=== PATIENT | female | born 1950 | race Caucasian/White ===

== ENCOUNTER 2020-10-17 14:17 | Inpatient (IN) | payer MEDICARE ==
[~2020-10-17] VITALS: Ht 157.5 cm; Wt 50.6 kg
[2020-10-17] MEDS ORDERED: ONDANSETRON HCL INJ 2MG/ML 2ML 2 MG/ML VIAL IV STA (15:08)
[2020-10-17] MEDS ORDERED: SODIUM CHLORIDE 0.9% 1000ML 1,000 ML IV STA (15:08)
[2020-10-17 15:19] LABS: BASOPHILS % 0.7 % (0.0-1.0); EOSINOPHILS # (AUTO) 0.2 (0.0-0.4); EOSINOPHILS % 3.5 % (0.0-6.0); HEMATOCRIT 40.6 % (34.2-44.1); HEMOGLOBIN 13.9 g/dL (12.0-16.0); LYMPHOCYTES # (AUTO) 0.8 (1.0-3.2); LYMPHOCYTES % 14.6 % (18.0-39.1); MEAN CORPUSCULAR HEMOGLOBIN 34.3 pg (28-32); MEAN CORPUSCULAR HGB CONC 34.2 g/dL (31-35); MEAN CORPUSCULAR VOLUME 100.2 fL (81-99); MONOCYTES # (AUTO) 0.9 (0.2-0.8); MONOCYTES % 16.5 % (4.4-11.3); NEUTROPHILS # (AUTO) 3.5 (2.1-6.9); NEUTROPHILS % 64.3 % (38.7-80.0); PLATELET COUNT 237 x10e3/uL (140-360); RED BLOOD COUNT 4.05 x10e6/uL (3.6-5.1); RED CELL DISTRIBUTION WIDTH 14.3 % (11.7-14.4)
[2020-10-17 16:11] LABS: ALBUMIN 3.7 g/dL (3.5-5.0); ALBUMIN/GLOBULIN RATIO 1.2 (0.8-2.0); CALCIUM 9.2 mg/dL (8.4-10.2); CREATININE, SERUM 2.29 mg/dL (0.57-1.11)
[2020-10-17 16:17] LABS: CREATINE KINASE MB 3.8 ng/mL (0-5.0)
[2020-10-17] MEDS ORDERED: PIPER-TAZ 3.375 GM 50 ML IV STA (17:23)
[2020-10-17] MEDS ORDERED: POTASSIUM CHLORIDE 20 MEQ TAB CR PO STA (17:27)
[2020-10-17] MEDS ORDERED: POTASSIUM CHLORIDE 10MEQ/100ML 100 ML IV ONE (17:30)
[2020-10-17] MEDS: PIPERACILLIN IV SCH ×2 (18:12→21:57)
[2020-10-17] MEDS: SODIUM CHLORIDE 0.9% IV SCH ×2 (18:12→21:57)
[2020-10-17] MEDS: TAZO IV SCH ×2 (18:12→21:57)
[2020-10-17] MEDS: D5.45%NS/KCL 20MEQ 1,000 ML IV SCH (18:55)
[2020-10-17 20:38] VITALS: BP 191/82
[2020-10-17 21:00] VITALS: BP 191/82
[2020-10-17] MEDS ORDERED: DICYCLOMINE HCL10 MG PO (21:22)
[2020-10-17] MEDS ORDERED: TOPIRAMATE25 MG PO (21:22)
[2020-10-17] MEDS ORDERED: SERTRALINE HCL50 MG PO (21:22)
[2020-10-17] MEDS ORDERED: TRIAMTERENE-HCTZ1 EA PO (21:22)
[2020-10-17] MEDS ORDERED: PIPERACILLIN/TAZO 2.25 GM 50 ML IV ONE (21:41)
[2020-10-17] MEDS: TOPIRAMATE 25 MG TAB PO SCH (21:57)
[2020-10-17] MEDS: DICYCLOMINE HCL 10 MG CAP PO PRN (21:57)
[2020-10-17] MEDS: CLONIDINE HCL 0.1 MG TAB PO PRN (21:57)
[2020-10-17] MEDS: SERTRALINE HCL 50 MG TAB PO SCH (21:57)
[2020-10-18] VITALS (8 sets, daily range): BP systolic 115–189; BP diastolic 60–81
[2020-10-18] MEDS: LOPERAMIDE HCL 2 MG CAP PO PRN ×2 (01:15→17:07)
[2020-10-18] MEDS: D5.45%NS/KCL 20MEQ 1,000 ML IV SCH ×3 (04:22→17:07)
[2020-10-18] MEDS ORDERED: PIPERACILLIN/TAZO 2.25 GM 50 ML IV ONE (05:10)
[2020-10-18] MEDS: TAZO IV SCH ×3 (05:20→22:54)
[2020-10-18] MEDS: SODIUM CHLORIDE 0.9% IV SCH ×3 (05:20→22:54)
[2020-10-18] MEDS: PIPERACILLIN IV SCH ×3 (05:20→22:54)
[2020-10-18 05:59] LABS: BASOPHILS % 0.8 % (0.0-1.0); EOSINOPHILS # (AUTO) 0.3 (0.0-0.4); EOSINOPHILS % 4.9 % (0.0-6.0); HEMOGLOBIN 11.4 g/dL (12.0-16.0); LYMPHOCYTES # (AUTO) 0.8 (1.0-3.2); LYMPHOCYTES % 15.7 % (18.0-39.1); MEAN CORPUSCULAR HEMOGLOBIN 33.7 pg (28-32); MEAN CORPUSCULAR HGB CONC 32.6 g/dL (31-35); MEAN CORPUSCULAR VOLUME 103.6 fL (81-99); NEUTROPHILS # (AUTO) 3.2 (2.1-6.9); PLATELET COUNT 202 x10e3/uL (140-360); RED BLOOD COUNT 3.38 x10e6/uL (3.6-5.1); RED CELL DISTRIBUTION WIDTH 14.2 % (11.7-14.4)
[2020-10-18] MEDS: DICYCLOMINE HCL 10 MG CAP PO PRN ×2 (06:08→14:46)
[2020-10-18] MEDS: METRONIDAZOLE 500 MG TAB PO SCH ×3 (06:08→22:26)
[2020-10-18 06:21] LABS: ALBUMIN 2.7 g/dL (3.5-5.0); ALBUMIN/GLOBULIN RATIO 1.2 (0.8-2.0); ANION GAP 15.1 mmol/L (8-16); CALCIUM 7.9 mg/dL (8.4-10.2); CREATININE, SERUM 1.9 mg/dL (0.57-1.11); POTASSIUM 3.1 mmol/L (3.5-5.1)
[2020-10-18 06:24] LABS: MAGNESIUM 1.1 MG/DL (1.3-2.1)
[2020-10-18] MEDS ORDERED: MAGNESIUM SULFATE 2GM/50ML 50 ML IV ONE ×2 (07:00→09:00)
[2020-10-18] MEDS ORDERED: POTASSIUM CHLORIDE 20 MEQ TAB CR PO ONE (07:15)
[2020-10-18] MEDS: SERTRALINE HCL 50 MG TAB PO SCH ×2 (07:57→21:45)
[2020-10-18] MEDS: AMLODIPINE BESYLATE 5 MG TAB PO SCH (07:57)
[2020-10-18] MEDS: TOPIRAMATE 25 MG TAB PO SCH ×2 (07:57→21:45)
[2020-10-18] MEDS ORDERED: PIPERACILLIN IV ONE ×2 (14:44→22:10)
[2020-10-18] MEDS ORDERED: TAZO IV ONE ×2 (14:44→22:10)
[2020-10-18] MEDS ORDERED: PEG (High)/E-LYTE SOLN 4,000 ML BTL PO ONE (20:00)
[2020-10-18] MEDS ORDERED: BISACODYL 5 MG TAB EC PO ONE (20:00)
[2020-10-19] VITALS (8 sets, daily range): BP systolic 125–173; BP diastolic 67–81
[2020-10-19] MEDS: D5.45%NS/KCL 20MEQ 1,000 ML IV SCH ×3 (03:49→17:11)
[2020-10-19] MEDS: METRONIDAZOLE 500 MG TAB PO SCH ×3 (06:00→21:03)
[2020-10-19] MEDS: TAZO IV SCH ×3 (06:13→21:03)
[2020-10-19] MEDS: PIPERACILLIN IV SCH ×3 (06:13→21:03)
[2020-10-19] MEDS: SODIUM CHLORIDE 0.9% IV SCH ×3 (06:13→21:03)
[2020-10-19] MEDS ORDERED: PIPERACILLIN IV ONE ×2 (06:18→20:29)
[2020-10-19] MEDS ORDERED: TAZO IV ONE ×2 (06:18→20:29)
[2020-10-19 06:54] LABS: BASOPHILS # (AUTO) 0.1 (0.0-0.1); EOSINOPHILS # (AUTO) 0.3 (0.0-0.4); EOSINOPHILS % 5.4 % (0.0-6.0); HEMATOCRIT 33.3 % (34.2-44.1); HEMOGLOBIN 11.2 g/dL (12.0-16.0); LYMPHOCYTES # (AUTO) 0.6 (1.0-3.2); LYMPHOCYTES % 12.7 % (18.0-39.1); MEAN CORPUSCULAR HEMOGLOBIN 33.8 pg (28-32); MEAN CORPUSCULAR HGB CONC 33.6 g/dL (31-35); MEAN CORPUSCULAR VOLUME 100.6 fL (81-99); MONOCYTES # (AUTO) 0.9 (0.2-0.8); MONOCYTES % 18.3 % (4.4-11.3); NEUTROPHILS # (AUTO) 3.1 (2.1-6.9); NEUTROPHILS % 62.2 % (38.7-80.0); PLATELET COUNT 219 x10e3/uL (140-360); RED BLOOD COUNT 3.31 x10e6/uL (3.6-5.1); RED CELL DISTRIBUTION WIDTH 14.1 % (11.7-14.4)
[2020-10-19 07:13] LABS: ALBUMIN 2.5 g/dL (3.5-5.0); ANION GAP 10.8 mmol/L (8-16); CREATININE, SERUM 1.86 mg/dL (0.57-1.11); POTASSIUM 3.8 mmol/L (3.5-5.1)
[2020-10-19] MEDS: AMLODIPINE BESYLATE 5 MG TAB PO SCH (09:00)
[2020-10-19] MEDS: TOPIRAMATE 25 MG TAB PO SCH ×2 (09:12→20:58)
[2020-10-19] MEDS: SERTRALINE HCL 50 MG TAB PO SCH ×2 (09:12→21:03)
[2020-10-19] MEDS ORDERED: MIDAZOLAM HCL 2 MG/2 ML VIAL ONE (11:58)
[2020-10-19] MEDS ORDERED: FENTANYL CITRATE/PF 100MCG/2 ML INJ ONE (11:58)
[2020-10-19] MEDS ORDERED: PIPERACILLIN/TAZO 2.25 GM 50 ML IV ONE (13:51)
[2020-10-19] MEDS ORDERED: PROPOFOL IV EMULSION 10 MG/ML 20 ML VIAL ONE (17:45)
[2020-10-19] MEDS: LOPERAMIDE HCL 2 MG CAP PO PRN (17:49)
[2020-10-20] VITALS (7 sets, daily range): BP systolic 114–161; BP diastolic 67–80
[2020-10-20] MEDS ORDERED: TAZO IV ONE (04:55)
[2020-10-20] MEDS ORDERED: PIPERACILLIN IV ONE (04:55)
[2020-10-20] MEDS: TAZO IV SCH (05:47)
[2020-10-20] MEDS: SODIUM CHLORIDE 0.9% IV SCH (05:47)
[2020-10-20] MEDS: PIPERACILLIN IV SCH (05:47)
[2020-10-20] MEDS: METRONIDAZOLE 500 MG TAB PO SCH ×3 (05:47→21:36)
[2020-10-20] MEDS: D5.45%NS/KCL 20MEQ 1,000 ML IV SCH ×4 (05:52→22:10)
[2020-10-20 08:24] LABS: BASOPHILS % 0.8 % (0.0-1.0); EOSINOPHILS # (AUTO) 0.4 (0.0-0.4); EOSINOPHILS % 7.8 % (0.0-6.0); HEMATOCRIT 33.9 % (34.2-44.1); HEMOGLOBIN 11.3 g/dL (12.0-16.0); LYMPHOCYTES % 18.1 % (18.0-39.1); MEAN CORPUSCULAR HGB CONC 33.3 g/dL (31-35); MEAN CORPUSCULAR VOLUME 102.1 fL (81-99); MONOCYTES # (AUTO) 1.2 (0.2-0.8); MONOCYTES % 22.5 % (4.4-11.3); NEUTROPHILS # (AUTO) 2.7 (2.1-6.9); NEUTROPHILS % 50.4 % (38.7-80.0); PLATELET COUNT 191 x10e3/uL (140-360); RED BLOOD COUNT 3.32 x10e6/uL (3.6-5.1); RED CELL DISTRIBUTION WIDTH 14.3 % (11.7-14.4)
[2020-10-20 08:53] LABS: ALBUMIN 2.3 g/dL (3.5-5.0); ANION GAP 10.8 mmol/L (8-16); CALCIUM 7.8 mg/dL (8.4-10.2); CREATININE, SERUM 1.75 mg/dL (0.57-1.11); MAGNESIUM 1.4 MG/DL (1.3-2.1); POTASSIUM 3.8 mmol/L (3.5-5.1)
[2020-10-20] MEDS: AMLODIPINE BESYLATE 5 MG TAB PO SCH (09:22)
[2020-10-20] MEDS: SERTRALINE HCL 50 MG TAB PO SCH ×2 (09:23→21:39)
[2020-10-20] MEDS: TOPIRAMATE 25 MG TAB PO SCH ×2 (09:23→21:37)
[2020-10-20] MEDS: LOPERAMIDE HCL 2 MG CAP PO PRN (09:23)
[2020-10-20] MEDS: PIPERACILLIN/TAZO 2.25 GM 50 ML IV SCH ×2 (14:16→22:07)
[2020-10-21] VITALS (8 sets, daily range): BP systolic 160–174; BP diastolic 76–90
[2020-10-21] MEDS: LOPERAMIDE HCL 2 MG CAP PO PRN ×3 (00:53→14:22)
[2020-10-21] MEDS: PIPERACILLIN/TAZO 2.25 GM 50 ML IV SCH ×3 (06:09→21:20)
[2020-10-21] MEDS: METRONIDAZOLE 500 MG TAB PO SCH ×3 (06:11→21:21)
[2020-10-21] MEDS: AMLODIPINE BESYLATE 5 MG TAB PO SCH (09:17)
[2020-10-21] MEDS: TOPIRAMATE 25 MG TAB PO SCH ×2 (09:18→21:20)
[2020-10-21] MEDS: D5.45%NS/KCL 20MEQ 1,000 ML IV SCH ×3 (09:18→23:13)
[2020-10-21] MEDS: SERTRALINE HCL 50 MG TAB PO SCH ×2 (09:19→21:20)
[2020-10-21] MEDS: CLONIDINE HCL 0.1 MG TAB PO PRN (21:20)
[2020-10-22] VITALS (7 sets, daily range): BP systolic 141–165; BP diastolic 73–83
[2020-10-22 04:56] LABS: BASOPHILS % 0.9 % (0.0-1.0); EOSINOPHILS # (AUTO) 0.3 (0.0-0.4); HEMATOCRIT 35.8 % (34.2-44.1); HEMOGLOBIN 11.8 g/dL (12.0-16.0); LYMPHOCYTES % 24.1 % (18.0-39.1); MEAN CORPUSCULAR HEMOGLOBIN 33.6 pg (28-32); MONOCYTES # (AUTO) 0.7 (0.2-0.8); MONOCYTES % 17.3 % (4.4-11.3); NEUTROPHILS # (AUTO) 2.1 (2.1-6.9); NEUTROPHILS % 49.5 % (38.7-80.0); PLATELET COUNT 209 x10e3/uL (140-360); RED BLOOD COUNT 3.51 x10e6/uL (3.6-5.1); RED CELL DISTRIBUTION WIDTH 14.4 % (11.7-14.4)
[2020-10-22 05:22] LABS: ANION GAP 9.3 mmol/L (8-16); CREATININE, SERUM 1.59 mg/dL (0.57-1.11); POTASSIUM 4.3 mmol/L (3.5-5.1)
[2020-10-22] MEDS: PIPERACILLIN/TAZO 2.25 GM 50 ML IV SCH ×3 (06:35→22:37)
[2020-10-22] MEDS: METRONIDAZOLE 500 MG TAB PO SCH ×3 (06:39→22:27)
[2020-10-22] MEDS: D5.45%NS/KCL 20MEQ 1,000 ML IV SCH ×2 (08:49→17:15)
[2020-10-22] MEDS: AMLODIPINE BESYLATE 5 MG TAB PO SCH (08:49)
[2020-10-22] MEDS: SERTRALINE HCL 50 MG TAB PO SCH ×2 (08:49→20:52)
[2020-10-22] MEDS: TOPIRAMATE 25 MG TAB PO SCH ×2 (08:49→20:52)
[2020-10-23] VITALS (9 sets, daily range): BP systolic 143–173; BP diastolic 79–89
[2020-10-23] MEDS: D5.45%NS/KCL 20MEQ 1,000 ML IV SCH ×2 (01:21→12:34)
[2020-10-23] MEDS: PIPERACILLIN/TAZO 2.25 GM 50 ML IV SCH ×3 (06:16→22:00)
[2020-10-23] MEDS: METRONIDAZOLE 500 MG TAB PO SCH ×3 (06:16→21:49)
[2020-10-23] MEDS ORDERED: HYDRALAZINE HCL 20 MG/ML VIAL IV PRN (07:00)
[2020-10-23] MEDS: TOPIRAMATE 25 MG TAB PO SCH ×2 (09:07→21:48)
[2020-10-23] MEDS: AMLODIPINE BESYLATE 5 MG TAB PO SCH (09:07)
[2020-10-23] MEDS: SERTRALINE HCL 50 MG TAB PO SCH ×2 (09:07→21:48)
[2020-10-24] VITALS (8 sets, daily range): BP systolic 152–183; BP diastolic 80–94
[2020-10-24] MEDS: D5.45%NS/KCL 20MEQ 1,000 ML IV SCH ×2 (00:37→06:39)
[2020-10-24] MEDS: PIPERACILLIN/TAZO 2.25 GM 50 ML IV SCH ×3 (06:34→23:07)
[2020-10-24] MEDS: METRONIDAZOLE 500 MG TAB PO SCH ×3 (06:34→22:00)
[2020-10-24 07:43] LABS: BASOPHILS # (AUTO) 0.1 (0.0-0.1); BASOPHILS % 1.1 % (0.0-1.0); EOSINOPHILS # (AUTO) 0.3 (0.0-0.4); HEMATOCRIT 33.9 % (34.2-44.1); HEMOGLOBIN 11.4 g/dL (12.0-16.0); LYMPHOCYTES # (AUTO) 1.3 (1.0-3.2); LYMPHOCYTES % 22.9 % (18.0-39.1); MEAN CORPUSCULAR HEMOGLOBIN 33.1 pg (28-32); MEAN CORPUSCULAR HGB CONC 33.6 g/dL (31-35); MEAN CORPUSCULAR VOLUME 98.5 fL (81-99); MONOCYTES # (AUTO) 1.1 (0.2-0.8); MONOCYTES % 19.6 % (4.4-11.3); NEUTROPHILS # (AUTO) 2.8 (2.1-6.9); PLATELET COUNT 212 x10e3/uL (140-360); RED BLOOD COUNT 3.44 x10e6/uL (3.6-5.1); RED CELL DISTRIBUTION WIDTH 14.3 % (11.7-14.4)
[2020-10-24 08:06] LABS: ANION GAP 11.8 mmol/L (8-16); CALCIUM 8.1 mg/dL (8.4-10.2); CREATININE, SERUM 1.6 mg/dL (0.57-1.11); POTASSIUM 3.8 mmol/L (3.5-5.1)
[2020-10-24] MEDS: SERTRALINE HCL 50 MG TAB PO SCH ×2 (08:56→21:37)
[2020-10-24] MEDS: AMLODIPINE BESYLATE 5 MG TAB PO SCH (08:56)
[2020-10-24] MEDS: TOPIRAMATE 25 MG TAB PO SCH ×2 (08:56→21:37)
[2020-10-24] MEDS ORDERED: MAGNESIUM SULFATE 2GM/50ML 50 ML IV ONE (09:15)
[2020-10-24] MEDS: ACETAMINOPHEN 325 MG TAB PO PRN (09:41)
[2020-10-25] VITALS (8 sets, daily range): BP systolic 141–170; BP diastolic 74–86
[2020-10-25] MEDS ORDERED: METHYLPREDNISOLONE SOD SUCC 125 MG/2ML VIAL IV ONE ×2 (05:00→06:30)
[2020-10-25] MEDS: ACETAMINOPHEN 325 MG TAB PO PRN ×4 (05:04→22:19)
[2020-10-25] MEDS: PIPERACILLIN/TAZO 2.25 GM 50 ML IV SCH ×3 (05:50→22:15)
[2020-10-25 06:10] LABS: BASOPHILS # (AUTO) 0.1 (0.0-0.1); BASOPHILS % 1.2 % (0.0-1.0); EOSINOPHILS # (AUTO) 0.3 (0.0-0.4); EOSINOPHILS % 5.2 % (0.0-6.0); HEMATOCRIT 36.7 % (34.2-44.1); HEMOGLOBIN 12.5 g/dL (12.0-16.0); LYMPHOCYTES % 17.1 % (18.0-39.1); MEAN CORPUSCULAR HEMOGLOBIN 33.9 pg (28-32); MEAN CORPUSCULAR HGB CONC 34.1 g/dL (31-35); MEAN CORPUSCULAR VOLUME 99.5 fL (81-99); MONOCYTES # (AUTO) 1.1 (0.2-0.8); MONOCYTES % 18.4 % (4.4-11.3); NEUTROPHILS # (AUTO) 3.4 (2.1-6.9); NEUTROPHILS % 57.8 % (38.7-80.0); PLATELET COUNT 248 x10e3/uL (140-360); RED BLOOD COUNT 3.69 x10e6/uL (3.6-5.1); RED CELL DISTRIBUTION WIDTH 13.8 % (11.7-14.4)
[2020-10-25 06:45] LABS: ALBUMIN 2.3 g/dL (3.5-5.0); ALBUMIN/GLOBULIN RATIO 0.8 (0.8-2.0); ANION GAP 10.4 mmol/L (8-16); CREATININE, SERUM 1.6 mg/dL (0.57-1.11); MAGNESIUM 1.4 MG/DL (1.3-2.1); POTASSIUM 3.4 mmol/L (3.5-5.1)
[2020-10-25] MEDS: TOPIRAMATE 25 MG TAB PO SCH ×2 (09:52→22:15)
[2020-10-25] MEDS: SERTRALINE HCL 50 MG TAB PO SCH ×2 (09:52→22:15)
[2020-10-25] MEDS: AMLODIPINE BESYLATE 5 MG TAB PO SCH (09:52)
[2020-10-25] MEDS: COLESTIPOL HCL 1 G TAB PO SCH ×2 (09:52→17:13)
[2020-10-26] VITALS (8 sets, daily range): BP systolic 136–164; BP diastolic 77–94
[2020-10-26] MEDS ORDERED: MAGNESIUM SULFATE 2GM/50ML 50 ML IV ONE (04:30)
[2020-10-26] MEDS ORDERED: CYANOCOBALAMIN INJ 1,000 MCG/ML VIAL IM ONE (05:00)
[2020-10-26] MEDS ORDERED: METHYLPREDNISOLONE SOD SUCC 40 MG/ML VIAL 1ML IV ONE (05:00)
[2020-10-26] MEDS: PIPERACILLIN/TAZO 2.25 GM 50 ML IV SCH ×3 (05:46→22:01)
[2020-10-26 06:31] LABS: BASOPHILS # (AUTO) 0.1 (0.0-0.1); EOSINOPHILS % 0.2 % (0.0-6.0); HEMOGLOBIN 11.6 g/dL (12.0-16.0); LYMPHOCYTES # (AUTO) 1.5 (1.0-3.2); LYMPHOCYTES % 31.5 % (18.0-39.1); MEAN CORPUSCULAR HEMOGLOBIN 33.2 pg (28-32); MEAN CORPUSCULAR HGB CONC 34.1 g/dL (31-35); MEAN CORPUSCULAR VOLUME 97.4 fL (81-99); MONOCYTES % 19.4 % (4.4-11.3); NEUTROPHILS # (AUTO) 2.3 (2.1-6.9); NEUTROPHILS % 47.7 % (38.7-80.0); PLATELET COUNT 295 x10e3/uL (140-360); RED BLOOD COUNT 3.49 x10e6/uL (3.6-5.1); RED CELL DISTRIBUTION WIDTH 14.1 % (11.7-14.4)
[2020-10-26 06:53] LABS: ALBUMIN 2.3 g/dL (3.5-5.0); ALBUMIN/GLOBULIN RATIO 0.8 (0.8-2.0); ANION GAP 12.3 mmol/L (8-16); CALCIUM 8.3 mg/dL (8.4-10.2); CREATININE, SERUM 1.77 mg/dL (0.57-1.11); POTASSIUM 3.3 mmol/L (3.5-5.1)
[2020-10-26] MEDS: COLESTIPOL HCL 1 G TAB PO SCH ×2 (08:07→18:32)
[2020-10-26] MEDS: AMLODIPINE BESYLATE 5 MG TAB PO SCH (08:07)
[2020-10-26] MEDS: ACETAMINOPHEN 325 MG TAB PO PRN (08:07)
[2020-10-26] MEDS: SERTRALINE HCL 50 MG TAB PO SCH ×2 (08:07→22:01)
[2020-10-26] MEDS: TOPIRAMATE 25 MG TAB PO SCH ×2 (08:08→22:01)
[2020-10-26 09:32] LABS: EOSINOPHILS % (MANUAL) 1 % (0-7); LYMPHOCYTES % (MANUAL) 24 % (19-48); MONOCYTES % (MANUAL) 7 % (3.4-9.0); NEUTROPHILS % (MANUAL) 60 % (40-74); PLATELET ESTIMATE ADEQUATE; PLATELET MORPHOLOGY COMMENT NORMAL; RBC MORPHOLOGY COMMENT NORMAL
[2020-10-26] MEDS: LOPERAMIDE HCL 2 MG CAP PO PRN ×3 (11:04→22:04)
[2020-10-26] MEDS ORDERED: POTASSIUM CHLORIDE 20 MEQ TAB CR PO ONE (12:30)
[2020-10-27] VITALS (7 sets, daily range): BP systolic 140–170; BP diastolic 72–87
[2020-10-27] MEDS: ACETAMINOPHEN 325 MG TAB PO PRN ×2 (00:29→16:02)
[2020-10-27] MEDS: PIPERACILLIN/TAZO 2.25 GM 50 ML IV SCH ×3 (05:31→22:25)
[2020-10-27 08:02] LABS: ALBUMIN 2.5 g/dL (3.5-5.0); ALBUMIN/GLOBULIN RATIO 0.8 (0.8-2.0); ANION GAP 12.4 mmol/L (8-16); CALCIUM 8.4 mg/dL (8.4-10.2); CREATININE, SERUM 1.9 mg/dL (0.57-1.11); MAGNESIUM 1.9 MG/DL (1.3-2.1); POTASSIUM 3.4 mmol/L (3.5-5.1)
[2020-10-27] MEDS: TOPIRAMATE 25 MG TAB PO SCH ×2 (08:31→21:27)
[2020-10-27] MEDS: AMLODIPINE BESYLATE 5 MG TAB PO SCH (08:31)
[2020-10-27] MEDS: SERTRALINE HCL 50 MG TAB PO SCH ×2 (08:31→21:27)
[2020-10-27] MEDS: COLESTIPOL HCL 1 G TAB PO SCH ×2 (08:31→16:22)
[2020-10-27] MEDS ORDERED: FAMOTIDINE 20 MG TAB PO PRN (22:45)
[2020-10-28] VITALS: BP 154/78
[2020-10-28 00:04] VITALS: BP 150/83
[2020-10-28] MEDS: LOPERAMIDE HCL 2 MG CAP PO PRN ×2 (03:00→09:55)
[2020-10-28 04:00] VITALS: BP 147/87
[2020-10-28] MEDS: PIPERACILLIN/TAZO 2.25 GM 50 ML IV SCH (05:46)
[2020-10-28] MEDS: ACETAMINOPHEN 325 MG TAB PO PRN (05:55)
[2020-10-28 08:00] VITALS: BP 161/84
[2020-10-28 08:01] VITALS: BP 161/84
[2020-10-28] MEDS: TOPIRAMATE 25 MG TAB PO SCH (08:10)
[2020-10-28] MEDS: SERTRALINE HCL 50 MG TAB PO SCH (08:10)
[2020-10-28] MEDS: AMLODIPINE BESYLATE 5 MG TAB PO SCH (08:10)
[2020-10-28] MEDS: COLESTIPOL HCL 1 G TAB PO SCH (08:10)
[2020-10-28 12:20] VITALS: BP 158/86
[2020-10-29] MEDS ORDERED: LACTOBACILLUS ACIDOPHILUS CAPSULE PO SCH (09:00)
== END 2020-10-28 15:11 | DRG 392 ==
LOC: ER 15:11 → ERHOLD 17:22 → MED/SURG 20:23 → OBSVTOIN 10-19 15:50 → MED/SURG 10-23 07:42
PROVIDERS: ADMIT Internal Medicine; ATTEND Internal Medicine
PROC: 0DBE8ZX Excision of Large Intestine, Via Natural or Artificial Opening Endoscopic, Diagnostic (ICD-10-PCS; 2020-10-19)
PROC: 0DBL8ZX Excision of Transverse Colon, Via Natural or Artificial Opening Endoscopic, Diagnostic (ICD-10-PCS; principal; 2020-10-19 14:00)
DX: A09 Infectious gastroenteritis and colitis, unspecified (principal); N17.9 Acute kidney failure, unspecified; K58.0 Irritable bowel syndrome with diarrhea; E87.6 Hypokalemia; E83.42 Hypomagnesemia; E86.0 Dehydration; D12.6 Benign neoplasm of colon, unspecified; K64.9 Unspecified hemorrhoids; Z20.828 Contact with and (suspected) exposure to other viral communicable diseases; I12.9 Hypertensive chronic kidney disease with stage 1 through stage 4 chronic kidney disease, or unspecified chronic kidney disease; N18.30 Chronic kidney disease, stage 3 unspecified; F41.9 Anxiety disorder, unspecified; K63.5 Polyp of colon; K64.8 Other hemorrhoids
CPT/HCPCS: 36415; 45380; 74176; 80048; 80053; 82550; 82553; 83605; 83690; 83735; 84484; 85025; 87040; 87493; 88305; 97139; 99284; G0378; J2250; J2405; J2543; J2920; J2930; J3010; J3420; J3475; J3480; J7030; U0002

== ENCOUNTER 2025-09-07 14:55 | Inpatient (IN) | payer MEDICARE ==
[~2025-09-07] VITALS: Ht 157.5 cm; Wt 46.3 kg
[~2025-09-07 14:55] MED LIST: ACETAMINOPHEN-1 EAC4 PO; DICYCLOMINE HCL10 MG PO; SERTRALINE HCL50 MG PO; TOPIRAMATE25 MG PO; TRIAMTERENE-HCTZ1 EA PO
[2025-09-07] MEDS ORDERED: SODIUM CHLORIDE FLUSH 10 ML SYR INJ PRN ×2 (15:30→16:45)
[2025-09-07 15:34] LABS: BASOPHILS % 0.7 % (0.0-1.0); EOSINOPHILS % 2.7 % (0.0-6.0); LYMPHOCYTES % 20.2 % (18.0-39.1); MONOCYTES % 9.5 % (4.4-11.3); NEUTROPHILS % 66.5 % (38.7-80.0); RED CELL DISTRIBUTION WIDTH 15.5 % (11.7-14.4)
[2025-09-07 15:50] LABS: INR 1.1
[2025-09-07 15:59] LABS: EST GLOMERULAR FILTRATION RATE 4 ML/MIN (>=60); PHOSPHORUS 4.6 MG/DL (2.3-4.7)
[2025-09-07 16:09] LABS: ETHANOL < 10.0 mg/dL (0.0-10.0)
[2025-09-07] MEDS ORDERED: ONDANSETRON HCL INJ 2MG/ML 2ML 2 MG/ML VIAL IV PRN (16:45)
[2025-09-07 17:59] VITALS: TEMP 98.7
[2025-09-07] MEDS: LORAZEPAM INJ 2 MG/ML VIAL IV PRN (20:35)
[2025-09-07] MEDS: HYDRALAZINE HCL 20 MG/ML VIAL IV PRN (21:09)
[2025-09-07] MEDS ORDERED: IPRATROPIUM BROMIDE 0.02% 2.5 ML NEB NEB PRN (21:30)
[2025-09-07] MEDS: FUROSEMIDE INJ 10 MG/ML 2 ML VIAL IV ONE (22:04)
[2025-09-08] VITALS (47 sets, daily range): BP systolic 144–196; BP diastolic 53–103; PULSE 73–108; RESP 12–27; TEMP 98–99.3; O2SAT 88–100
[2025-09-08 05:58] LABS: BASOPHILS % 0.6 % (0.0-1.0); EOSINOPHILS % 2.2 % (0.0-6.0); LYMPHOCYTES % 23.3 % (18.0-39.1); MONOCYTES % 13.9 % (4.4-11.3); NEUTROPHILS % 59.8 % (38.7-80.0); RED CELL DISTRIBUTION WIDTH 15.3 % (11.7-14.4)
[2025-09-08 06:30] LABS: EST GLOMERULAR FILTRATION RATE 8.0 ML/MIN (>=60)
[2025-09-08] MEDS: AMLODIPINE BESYLATE 5 MG TAB PO SCH (07:42)
[2025-09-08] MEDS: MUPIROCIN 2% OINT 22 GM TUBE TOP SCH (09:29)
[2025-09-08] MEDS ORDERED: ROPINIROLE HCL1 MG PO (09:47)
[2025-09-08] MEDS ORDERED: LEVOTHYROXINE75 MCG PO (09:47)
[2025-09-08] MEDS ORDERED: HYDROCHLOROTH12.5 MG (09:47)
[2025-09-08] MEDS ORDERED: RENVELA0.8 GM PO (09:48)
[2025-09-08] MEDS: SODIUM CHLORIDE 0.9% 1000ML 1,000 ML ONE (13:15)
[2025-09-08] MEDS ORDERED: TRAMADOL HCL 50 MG TAB PO PRN (20:00)
[2025-09-08] MEDS: ACETAMINOPHEN 325 MG TAB PO PRN (20:22)
[2025-09-09] VITALS (25 sets, daily range): BP systolic 131–185; BP diastolic 54–90; PULSE 74–101; RESP 16–23; TEMP 98–98.4; O2SAT 92–100
[2025-09-09] MEDS: SERTRALINE HCL 50 MG TAB PO SCH (05:31)
[2025-09-09] MEDS: LEVOTHYROXINE SODIUM 75 MCG TAB PO SCH (05:31)
[2025-09-09 06:13] LABS: HEPATITIS B CORE AB TOTAL Negative; HEPATITIS B SURFACE AB QUANT <3.5; HEPATITIS B SURFACE AG (P) Negative
[2025-09-09 06:33] LABS: BASOPHILS % 0.8 % (0.0-1.0); EOSINOPHILS % 2.0 % (0.0-6.0); LYMPHOCYTES % 18.8 % (18.0-39.1); MONOCYTES % 14.4 % (4.4-11.3); NEUTROPHILS % 63.8 % (38.7-80.0); RED CELL DISTRIBUTION WIDTH 15.2 % (11.7-14.4)
[2025-09-09 06:58] LABS: EST GLOMERULAR FILTRATION RATE 12.0 ML/MIN (>=60)
[2025-09-09] MEDS: CARVEDILOL 3.125 MG TAB PO SCH (08:11)
[2025-09-09] MEDS: AMLODIPINE BESYLATE 5 MG TAB PO SCH (08:11)
[2025-09-09] MEDS: ALBUTEROL SULF 0.083% NEB SOLN 3 ML NEB NEB PRN (11:24)
[2025-09-10] VITALS (14 sets, daily range): BP systolic 147–187; BP diastolic 61–90; PULSE 73–90; RESP 13–21; TEMP 98–98.4; O2SAT 91–98
[2025-09-10 07:19] LABS: EST GLOMERULAR FILTRATION RATE 8.0 ML/MIN (>=60)
[2025-09-10 13:38] LABS: ABG BASE EXCESS -3.0 mmol/L (-2 - 3); ABG HCO3 21 mmol/L (22-26); ABG OXYGEN SATURATION 76.0 % (95-98); ABG PCO2 31 mmHg (35-45); ABG PH 7.44 (7.35-7.45); ABG PO2 38 mmHg (80-105); ABG TCO2 22
[2025-09-10] MEDS: BUSPIRONE HCL 5 MG TAB PO ONE (15:05)
== END 2025-09-10 20:18 | disposition home or self-care (01) | DRG 640 ==
LOC: ER 15:08 → ERHOLD 16:45 → ICU 09-08 02:47
PROVIDERS: ADMIT Internal Medicine; ATTEND Internal Medicine
PROC: 4A033R1 Measurement of Arterial Saturation, Peripheral, Percutaneous Approach (ICD-10-PCS; 2025-09-07)
PROC: 4A043R1 Measurement of Venous Saturation, Peripheral, Percutaneous Approach (ICD-10-PCS; 2025-09-07)
PROC: 5A09357 Assistance with Respiratory Ventilation, Less than 24 Consecutive Hours, Continuous Positive Airway Pressure (ICD-10-PCS; 2025-09-07)
PROC: 5A1D70Z Performance of Urinary Filtration, Intermittent, Less than 6 Hours Per Day (ICD-10-PCS; principal; 2025-09-08)
PROC: 5A1D70Z Performance of Urinary Filtration, Intermittent, Less than 6 Hours Per Day (ICD-10-PCS; 2025-09-08)
PROC: 5A1D70Z Performance of Urinary Filtration, Intermittent, Less than 6 Hours Per Day (ICD-10-PCS; 2025-09-10)
DX: E87.79 Other fluid overload (principal); I50.21 Acute systolic (congestive) heart failure; J96.01 Acute respiratory failure with hypoxia; N18.6 End stage renal disease; I13.2 Hypertensive heart and chronic kidney disease with heart failure and with stage 5 chronic kidney disease, or end stage renal disease; G93.49 Other encephalopathy; Z68.1 Body mass index [BMI] 19.9 or less, adult; I16.0 Hypertensive urgency; Z99.2 Dependence on renal dialysis; Z91.158 Patient's noncompliance with renal dialysis for other reason; R55 Syncope and collapse; D69.6 Thrombocytopenia, unspecified; D64.9 Anemia, unspecified; Z71.3 Dietary counseling and surveillance; F41.9 Anxiety disorder, unspecified; E03.9 Hypothyroidism, unspecified; F32.A Depression, unspecified; Z53.29 Procedure and treatment not carried out because of patient's decision for other reasons; Z90.722 Acquired absence of ovaries, bilateral; Z86.16 Personal history of COVID-19; Z85.43 Personal history of malignant neoplasm of ovary; Z90.710 Acquired absence of both cervix and uterus
CPT/HCPCS: 36415; 70450; 71045; 72125; 80053; 80320; 82140; 82550; 82805; 83735; 83880; 84100; 84443; 84484; 85025; 85610; 85730; 86704; 86706; 87340; 93005; 93306; 94640; 94660; 94760; 94799; 99252; 99285; J0360; J1938; J2060; J7030